=== PATIENT | male | born 1985 | race Hispanic/Latino ===

== ENCOUNTER 2022-11-18 22:25 | Emergency (ER) | payer SELFPAY ==
[~2022-11-18] VITALS: Ht 157.5 cm; Wt 60.0 kg
[2022-11-18 22:30] VITALS: BP 129/99
[2022-11-18 22:45] VITALS: BP 138/98
[2022-11-18 23:00] VITALS: BP 116/87
[2022-11-18 23:15] VITALS: BP 121/89
[2022-11-18 23:30] VITALS: BP 119/84
[2022-11-18 23:45] VITALS: BP 112/76
[2022-11-19] MEDS ORDERED: BACTRIM DS1 TAB PO (00:39)
[2022-11-19] MEDS ORDERED: MOTRIN800 MG PO (00:39)
[2022-11-19 00:50] VITALS: BP 112/76
== END 2022-11-19 00:50 | disposition home or self-care (01) | DRG 605 ==
LOC: ED 22:25
PROC: 0HQ7XZZ Repair Abdomen Skin, External Approach (ICD-10-PCS; principal; 2022-11-18)
DX: S31.111A Laceration without foreign body of abdominal wall, left upper quadrant without penetration into peritoneal cavity, initial encounter (principal); F17.210 Nicotine dependence, cigarettes, uncomplicated; X99.9XXA Assault by unspecified sharp object, initial encounter; Y92.512 Supermarket, store or market as the place of occurrence of the external cause